=== PATIENT | male | born 1975 | race Two or more races ===

== ENCOUNTER 2023-12-16 09:51 | Inpatient (IN) | payer OTHER ==
[~2023-12-16] VITALS: Ht 165.1 cm; Wt 82.0 kg
[2023-12-16 10:11] LABS: Basophils # (auto) 0 10 ^3/uL (0-0.2); Basophils % (auto) 0.6 % (0.0-2.0); Eosinophils # (auto) 0.2 10 ^3/uL (0-0.8); Eosinophils % (auto) 3.3 % (0.0-7.0); Hematocrit 45.4 % (41.0-53.0); Lymphocytes # (auto) 2.1 10 ^3/uL (0.4-5.4); Lymphocytes % (auto) 28.5 % (10.0-50.0); Mean Corpuscular Hemoglobin 28.5 pg (28.0-32.0); Mean Corpuscular Hgb Conc. 33.1 g/dL (32.0-36.0); Monocytes # (auto) 0.4 10 ^3/uL (0-1.3); Monocytes % (auto) 5.3 % (0.0-12.0); Neutrophils # (auto) 4.5 10 ^3/uL (1.6-8.6); Neutrophils % (auto) 62.3 % (37.0-80.0); Nucleated Red Blood Cells % 0.1 %; Red Blood Cells 5.28 10^6/uL (4.5-5.90); Red Cell Distribution Width 13.7 % (11.8-14.3); White Blood Cell 7.3 10^3/uL (4.4-10.8)
[2023-12-16 10:28] LABS: Alanine Aminotransferase 20 U/L (7-40); Albumin 4.8 g/dL (3.2-4.8); Alkaline Phosphatase 92 U/L (46-116); Anion Gap 7 (5-15); Aspartate Aminotransferase 11 U/L (13-40); Bilirubin, Total 0.5 mg/dL (0.2-1.0); Blood Urea Nitrogen 16 mg/dL (9-23); Calcium 10.1 mg/dL (8.5-10.1); Carbon Dioxide 27 mmol/L (20-30); Chloride 102 mmol/L (98-107); Glucose 235 mg/dL (74-106); Potassium 4.6 mmol/L (3.5-5.1); Sodium 136 mmol/L (136-145); Total Protein 7.9 g/dL (5.7-8.2)
[2023-12-16 10:46] LABS: Urine Bacteria None Seen /hpf (None Seen)
[2023-12-16 10:58] LABS: Urine Blood Negative /uL (Negative); Urine Clarity Clear (Clear); Urine Color Light-Yellow (Yellow); Urine Protein, UAD Negative (Negative); Urine Specific Gravity 1.037 (1.001-1.035); Urine Urobilinogen Normal (Negative); Urine WBC 1 /hpf (0 - 3)
[2023-12-16] MEDS: ASPirin 325 MG TAB PO ONE (11:40)
[2023-12-16] MEDS: NITROGLYCERIN 0.4 MG SL TAB SL ONE (11:54)
[2023-12-16] MEDS ORDERED: NITROGLYCERIN 0.4 MG SL TAB SL PRN (15:15)
[2023-12-16] MEDS ORDERED: MORPHINE SULFATE 4 MG/ML SYR/VIAL IV PRN (15:15)
[2023-12-16] MEDS ORDERED: ACETAMINOPHEN 325 MG TAB PO PRN (15:15)
[2023-12-16] MEDS ORDERED: ONDANSETRON HCL 4 MG/2 ML VIAL IV PRN (15:15)
[2023-12-16 16:11] LABS: INR 0.96 (0.9-1.15); Prothrombin Time 10.2 sec (9.3-11.8)
[2023-12-16] MEDS: PANTOPRAZOLE 40 MG/10 ML VIAL INJ IV ONE (17:00)
[2023-12-16 17:35] VITALS: PULSE 86; RESP 20; O2SAT 96
[2023-12-16] MEDS: METOPROLOL TARTRATE 25 MG TAB PO SCH (22:23)
[2023-12-16] MEDS: ATORVASTATIN 20 MG TAB PO SCH (22:23)
[2023-12-16] MEDS: ENOXAPARIN SOD 80 MG/0.8ML SYRINGE SC SCH (22:25)
[2023-12-17 07:21] LABS: Basophils # (auto) 0 10 ^3/uL (0-0.2); Basophils % (auto) 0.8 % (0.0-2.0); Eosinophils # (auto) 0.2 10 ^3/uL (0-0.8); Eosinophils % (auto) 3.8 % (0.0-7.0); Hematocrit 42.6 % (41.0-53.0); Hemoglobin 14.6 g/dL (13.5-17.5); Lymphocytes # (auto) 1.7 10 ^3/uL (0.4-5.4); Lymphocytes % (auto) 32.7 % (10.0-50.0); Mean Corpuscular Hemoglobin 29.4 pg (28.0-32.0); Mean Corpuscular Hgb Conc. 34.2 g/dL (32.0-36.0); Mean Corpuscular Volume 86.1 fL (80.0-100.0); Monocytes # (auto) 0.3 10 ^3/uL (0-1.3); Monocytes % (auto) 4.8 % (0.0-12.0); Neutrophils # (auto) 3.1 10 ^3/uL (1.6-8.6); Neutrophils % (auto) 57.9 % (37.0-80.0); Nucleated Red Blood Cells % 0.1 %; Red Blood Cells 4.95 10^6/uL (4.5-5.90); Red Cell Distribution Width 14.2 % (11.8-14.3); White Blood Cell 5.3 10^3/uL (4.4-10.8)
[2023-12-17 07:41] LABS: Bilirubin, Total 0.3 mg/dL (0.2-1.0); Total Protein 7.5 g/dL (5.7-8.2)
[2023-12-17 08:23] VITALS: PULSE 75; RESP 16; O2SAT 95
[2023-12-17] MEDS ORDERED: GLIP5TAB21 PO (08:30)
[2023-12-17] MEDS ORDERED: METF-372 PO (08:30)
[2023-12-17] MEDS ORDERED: LISI10TA34 PO (08:30)
[2023-12-17] MEDS ORDERED: GEMF-66 PO (08:30)
[2023-12-17 08:32] LABS: Chloride 102 mmol/L (98-107); Potassium 4.6 mmol/L (3.5-5.1); Sodium 134 mmol/L (136-145)
[2023-12-17 08:35] LABS: Anion Gap 8 (5-15); Calcium 9.9 mg/dL (8.5-10.1); Carbon Dioxide 24 mmol/L (20-30)
[2023-12-17 08:40] LABS: BUN/Creatinine Ratio 12.7 (10.0-20.0); Blood Urea Nitrogen 14 mg/dL (9-23); Triglycerides 568 mg/dL (< 150)
[2023-12-17 08:41] LABS: Alkaline Phosphatase 95 U/L (46-116)
[2023-12-17 08:42] LABS: Alanine Aminotransferase 17 U/L (7-40); Albumin 4.7 g/dL (3.2-4.8); Cholesterol 214 mg/dL (< 200); HDL Cholesterol 31 mg/dL (40-59)
[2023-12-17 08:45] LABS: Glucose 341 mg/dL (74-106)
[2023-12-17 08:51] LABS: Aspartate Aminotransferase 10 U/L (13-40)
[2023-12-17] MEDS: ASPirin 81 mg TAB PO SCH (10:00)
[2023-12-17] MEDS: DOCUSATE SOD 100 MG CAP PO SCH (10:10)
[2023-12-17] MEDS: CLOPIDOGREL BISULFATE 75 MG TAB PO SCH (10:10)
[2023-12-17] MEDS: PANTOPRAZOLE 40 MG/10 ML VIAL INJ IV SCH (10:15)
[2023-12-17 10:52] VITALS: BP 128/83; PULSE 70; PULSE 78; RESP 18; TEMP 98.6; O2SAT 98
[2023-12-17 12:25] VITALS: BP 128/83; PULSE 70; RESP 17; TEMP 97.8; O2SAT 96
[2023-12-17 16:25] VITALS: BP 137/84; PULSE 70; RESP 17; TEMP 98; O2SAT 97
[2023-12-17 16:40] VITALS: BP 128/83; PULSE 70; TEMP 36.6
[2023-12-18] MEDS ORDERED: GEMFIBROZIL 600 MG TAB PO SCH (10:00)
== END 2023-12-17 18:00 | disposition home or self-care (01) | DRG 311 ==
LOC: ER 09:51 → TELE 16:44 → TELE-CENTR 12-17 11:04
PROVIDERS: ADMIT Nurse Practitioner Family; ATTEND Nurse Practitioner Family
DX: I20.0 Unstable angina (principal); E11.65 Type 2 diabetes mellitus with hyperglycemia; I10 Essential (primary) hypertension; E66.9 Obesity, unspecified; E78.2 Mixed hyperlipidemia; K76.0 Fatty (change of) liver, not elsewhere classified; K76.9 Liver disease, unspecified; Z90.49 Acquired absence of other specified parts of digestive tract; Z83.3 Family history of diabetes mellitus; Z79.84 Long term (current) use of oral hypoglycemic drugs; Z68.30 Body mass index [BMI] 30.0-30.9, adult; Z79.4 Long term (current) use of insulin
CPT/HCPCS: 36415; 71045; 76705; 80053; 80061; 81001; 83036; 83690; 83735; 84484; 85025; 85379; 85610; 93005; 93306; 96374; C9113; G0378